=== PATIENT | female | born 1960 | race African-American/Black ===

== ENCOUNTER 2016-08-02 19:37 | Inpatient (IN) | payer OTHER ==
[~2016-08-02] VITALS: Ht 165.1 cm; Wt 103.0 kg
[~2016-08-02 19:37] MED LIST: IBUPROFEN600 MG ORAL; NKM; NORCO 5-325 TA1 EACH ORAL
[2016-08-02 19:50] VITALS: BP 129/94
[2016-08-02] MEDS ORDERED: DuoNeb 0.5-3(2.5)mg/3ml neb HHN ONE ×2 (20:15→21:45)
[2016-08-02 20:40] LABS: BASOPHILS % (AUTO) 0.8 % (0.0-2.0); LYMPHOCYTES % (AUTO) 24.7 % (20.0-45.0); MEAN CORPUSCULAR HEMOGLOBIN 27.3 PG (27.0-31.0); MEAN CORPUSCULAR HGB CONC 31.8 G/DL (32.0-36.0); MEAN CORPUSCULAR VOLUME 86 FL (80-99); MEAN PLATELET VOLUME 7.3 FL (6.5-10.1); MONOCYTES % (AUTO) 4.6 % (1.0-10.0); NEUTROPHILS % (AUTO) 68.8 % (45.0-75.0); PLATELET COUNT 254 K/UL (150-450); RED CELL DISTRIBUTION WIDTH 13.1 % (11.6-14.8); WHITE BLOOD COUNT 4.9 K/UL (4.8-10.8)
[2016-08-02 21:05] LABS: TROPONIN I < 0.30 ng/mL (<=0.30)
[2016-08-02 21:09] LABS: ALANINE AMINOTRANSFERASE 18 U/L (3-33); ALBUMIN/GLOBULIN RATIO 1.4 (1.0-2.7); ANION GAP 16 (5-15); ASPARTATE AMINO TRANSFERASE 18 U/L (5-40); CALCIUM 9.9 mg/dL (8.6-10.2); CARBON DIOXIDE 26 mEQ/L (20-30); CHLORIDE 101 mEQ/L (98-107); CREATININE 0.7 mg/dL (0.5-0.9); GLOMERULAR FILTRATION RATE > 60 mL/min (>60); HEMOLYSIS 7; SODIUM 143 mEQ/L (135-145); TOTAL PROTEIN 6.4 g/dL (6.6-8.7)
[2016-08-02] MEDS ORDERED: Norco 5mg/325mg tab ORAL ONE (21:15)
[2016-08-02 21:19] LABS: CKMB < 1.5 ng/mL (< 3.8)
[2016-08-02] MEDS ORDERED: Solu-MEDROL 125mg Inj IVP SCH (22:00)
[2016-08-02 22:38] VITALS: BP 103/53
[2016-08-02] MEDS ORDERED: CYCLOBENZAPRINE10 MG ORAL (23:26)
--- NOTE | 2016-08-02 23:59 | Emergency Room Report ---
History of Present Illness General Chief Complaint: Chest Pain Source: Patient Present Illness [facility] The patient's 55-year-old female presented after increased chest pain. Patient gradual onset of symptoms. Patient reported having increased sharp chest pain associated with some coughing. Patient gradual worsening of difficulty breathing. She denies any leg pain or swelling. Patient had no known prior cardiac history.The patient had a nonproductive cough. Patient had subjective fever. She reported having sharp pain which was worse with coughing. Allergies: Coded Allergies: PENICILLIN (Verified Allergy, Unknown, 06/11/15) Patient History Past Medical History: see triage record Now: No Reviewed Nursing Documentation: PMH: Agreed, PSxH: Agreed Nursing Documentation-PMH Past Medical History: No History, Except For Review of Systems All Other Systems: negative except mentioned in HPI Physical Exam Vital Signs Date Time Temp Pulse Resp B/P Pulse Ox O2 Delivery O2 Flow Rate FiO2 08/02/16 19:41 98.2 103 16 129/94 100 Room Air 08/02/16 20:20 21 08/02/16 21:56 2.0 Sp02 EP Interpretation: reviewed, normal General Appearance: normal inspection, alert, GCS 15, mild distress Head: atraumatic ENT: normal ENT inspection, hearing grossly normal, normal voice Neck: normal inspection, full range of motion, supple, no bony tend Respiratory: normal inspection, no retraction, decreased breath sounds, wheezing Cardiovascular #1: regular rate, rhythm, no edema Gastrointestinal: normal inspection, normal bowel sounds, non tender, soft, no guarding, no hernia Genitourinary: no CVA tenderness Musculoskeletal: normal inspection, back normal, normal range of motion Neurologic: normal inspection, alert, oriented x3, responsive, optometrist president/practice owner III-XII nml as tested, speech normal Psychiatric: normal inspection, judgement/insight normal, mood/affect normal Skin: normal inspection, normal color, no rash Medical Decision Making Diagnostic Impression: Primary Impression: Chest pain Additional Impressions: Asthmatic bronchitis Hypoxia ER Course Patient presented for shortness of breath.Differential included but was not limited to anemia, pneumonia, pneumothorax, myocardial infarction, pericardial effusion, congestive heart failure, acidosis. Because of complexity of patient' s case laboratory testing and imaging studies were ordered. Chest x-ray one view interpreted by me showed normal cardiac size without evident infiltrate there were degenerative spinal changes noted. Patient was given breathing treatments. She was given Solu-Medrol IV. Dr. Ho was contacted for Dr. Fregoso for inpatient management. Labs Test 08/02/16 20:21 White Blood Count 4.9 K/UL (4.8-10.8) Red Blood Count 4.70 M/UL (4.20-5.40) Hemoglobin 12.8 G/DL (12.0-16.0) Hematocrit 40.3 % (37.0-47.0) Mean Corpuscular Volume 86 FL (80-99) Mean Corpuscular Hemoglobin 27.3 PG (27.0-31.0) Mean Corpuscular Hemoglobin Concent 31.8 G/DL (32.0-36.0) Red Cell Distribution Width 13.1 % (11.6-14.8) Platelet Count 254 K/UL (150-450) Mean Platelet Volume 7.3 FL (6.5-10.1) Neutrophils (%) (Auto) 68.8 % (45.0-75.0) Lymphocytes (%) (Auto) 24.7 % (20.0-45.0) Monocytes (%) (Auto) 4.6 % (1.0-10.0) Eosinophils (%) (Auto) 1.0 % (0.0-3.0) Basophils (%) (Auto) 0.8 % (0.0-2.0) Sodium Level 143 mEQ/L (135-145) Potassium Level 4.0 mEQ/L (3.4-4.9) Chloride Level 101 mEQ/L (98-107) Carbon Dioxide Level 26 mEQ/L (20-30) Anion Gap 16 (5-15) Blood Urea Nitrogen 14 mg/dL (7-23) Creatinine 0.7 mg/dL (0.5-0.9) Estimat Glomerular Filtration Rate > 60 mL/min (>60) Glucose Level 156 mg/dL (74-106) Calcium Level 9.9 mg/dL (8.6-10.2) Total Bilirubin 0.3 mg/dL (0.0-1.2) Aspartate Amino Transf (AST/SGOT) 18 U/L (5-40) Alanine Aminotransferase (ALT/SGPT) 18 U/L (3-33) Alkaline Phosphatase 77 U/L (35-104) Total Creatine Kinase 70 U/L (26-140) Creatine Kinase MB < 1.5 ng/mL (< 3.8) Creatine Kinase MB Relative Index Troponin I < 0.30 ng/mL (<=0.30) Pro-B-Type Natriuretic Peptide 18 pg/mL (0-125) Total Protein 6.4 g/dL (6.6-8.7) Albumin 3.8 g/dL (3.5-5.2) Globulin 2.6 g/dL Albumin/Globulin Ratio 1.4 (1.0-2.7) EKG Diagnostic Results Rate: normal Rhythm: NSR ST Segments: no acute changes Chest X-Ray Diagnostic Results EP Interpretation: Yes Findings: no consolidation, no effusion, no pneumothorax, no acute cardiopulmonary disease Number of Views: 1 Last Vital Signs Date Time Temp Pulse Resp B/P Pulse Ox O2 Delivery O2 Flow Rate FiO2 08/02/16 23:27 98.2 105 40 103/53 97 Nasal Cannula 2.0 28 Status: unchanged Disposition: ADMITTED INPATIENT Condition: Serious Referrals: [facility],REFERRING (PCP) Dalton Lafleur Aug 02, 2016 23:59
[2016-08-03] MEDS ORDERED: DIAZEPAM10 MG PO (00:05)
[2016-08-03] MEDS ORDERED: TIZANIDINE HCL4 MG PO (00:05)
[2016-08-03] MEDS ORDERED: HYDROCODON-ACE1 EA13 PO (00:05)
[2016-08-03 00:19] VITALS: BP 152/89
[2016-08-03] MEDS ORDERED: Hydromorphone 0.5mg/0.5ml inj IVP PRN (01:00)
[2016-08-03] MEDS: HYDROmorphone 1mg/ml Carpuject IVP PRN ×3 (01:07→20:33)
[2016-08-03 03:04] LABS: MEAN CORPUSCULAR HEMOGLOBIN 27.4 PG (27.0-31.0); MEAN CORPUSCULAR HGB CONC 31.9 G/DL (32.0-36.0); MEAN CORPUSCULAR VOLUME 86 FL (80-99); MEAN PLATELET VOLUME 7.5 FL (6.5-10.1); PLATELET COUNT 244 K/UL (150-450); RED BLOOD COUNT 4.77 M/UL (4.20-5.40); RED CELL DISTRIBUTION WIDTH 13.2 % (11.6-14.8); WHITE BLOOD COUNT 7.7 K/UL (4.8-10.8)
[2016-08-03 03:18] LABS: ANION GAP 19 (5-15); CALCIUM 9.6 mg/dL (8.6-10.2); CARBON DIOXIDE 22 mEQ/L (20-30); CHLORIDE 100 mEQ/L (98-107); CREATININE 0.7 mg/dL (0.5-0.9); GLOMERULAR FILTRATION RATE > 60 mL/min (>60); HEMOLYSIS 2; POTASSIUM 4.4 mEQ/L (3.4-4.9); SODIUM 141 mEQ/L (135-145)
[2016-08-03 03:20] LABS: TROPONIN I < 0.30 ng/mL (<=0.30)
[2016-08-03 04:05] VITALS: BP 129/66
[2016-08-03] MEDS: DuoNeb 0.5-3(2.5)mg/3ml neb HHN PRN (06:15)
[2016-08-03 08:21] VITALS: BP 129/65
[2016-08-03] MEDS: PredniSONE 20mg tab ORAL SCH (08:23)
[2016-08-03 09:10] LABS: TROPONIN I < 0.30 ng/mL (<=0.30)
--- NOTE | 2016-08-03 10:05 | History and Physical ---
History of Present Illness General Date patient seen: Aug 03, 2016 Time patient seen: 10:05 Reason for Hospitalization: Chest Pain Present Illness HPI 55y/o female with pmh of tobacco abuse who presents with chest pain. Pt c/o sharp pleuritic substernal and R sided chest pain since yesterday. Also w/ SOB. She has been having a cough productive of some yellow sputum and subjective fevers for the past few days. Allergies: Coded Allergies: PENICILLIN (Verified Allergy, Unknown, 06/11/15) Medication History Scheduled Cyclobenzaprine Hcl* (Flexeril*), 10 MG ORAL THREE TIMES A DAY, (Reported) Diazepam* (Diazepam*), 10 MG PO BEDTIME, (Reported) Tizanidine Hcl* (Zanaflex*), 4 MG PO Q8HR, (Reported) Scheduled PRN Hydrocodone Bit/Acetaminophen 10-325* (Hydrocodon-Acetaminophn 10-325*), 1 TAB PO Q6HR PRN for For Pain, (Reported) Ibuprofen* (Motrin*), 600 MG ORAL Q6H PRN for For Pain Discontinued Medications Hydrocodone Bit/Acetaminophen 5-325* ([place] 5-325*), 1 TAB ORAL Q6H PRN for For Pain Discontinued Reason: Therapy completed Patient History History Provided By: Patient, Medical Record Healthcare decision maker pt alert and oriented Resuscitation status Full Code Advanced Directive on File Past Medical/Surgical History Past Medical/Surgical History: (1) Tobacco abuse Family History Family History: Patient reports no known family medical history. Social History Social History: (1) Tobacco abuse Review of Systems ROS Narrative CONSTITUTIONAL: No weight loss, fever, chills, weakness or fatigue. HEENT: Eyes: No visual loss, blurred vision, double vision or yellow sclerae. Ears, Nose, Throat: No hearing loss, sneezing, congestion, runny nose or sore throat. SKIN: No rash or itching. CARDIOVASCULAR: +chest pain, chest pressure or chest discomfort. No palpitations or edema. RESPIRATORY: +shortness of breath, cough or sputum. GASTROINTESTINAL: No anorexia, nausea, vomiting or diarrhea. No abdominal pain or blood. NEUROLOGICAL: No headache, dizziness, syncope, paralysis, ataxia, numbness or tingling in the extremities. No change in bowel or bladder control. MUSCULOSKELETAL: No muscle, back pain, joint pain or stiffness. HEMATOLOGIC: No anemia, bleeding or bruising. LYMPHATICS: No enlarged nodes. No history of splenectomy. PSYCHIATRIC: No history of depression or anxiety. ENDOCRINOLOGIC: No reports of sweating, cold or heat intolerance. No polyuria or polydipsia. ALLERGIES: No history of asthma, hives, eczema or rhinitis. Physical Exam Physical Exam Narrative General: alert, cooperative, no distress, appears stated age Head: normocephalic, without obvious abnormality, atraumatic Eyes: conjunctivae/corneas clear. PERRL, EOM's intact Throat: lips, mucosa, and tongue normal. MMM Neck: supple, symmetrical, trachea midline, and no JVD Lungs: +wheezing b/l Heart: regular rate and rhythm, S1, S2 normal, no murmur, click, rub or gallop +reproducible pain Abdomen: soft, non-tender, non-distended, bowel sounds normal; no masses or organomegaly Extremities: extremities normal, atraumatic, no cyanosis or edema Pulses: 2+ and symmetric Skin: skin color, texture, turgor normal; no rashes or lesions Neurologic: grossly normal, no focal deficits Last 24 Hour Vital Signs Date Time Temp Pulse Resp B/P Pulse Ox O2 Delivery O2 Flow Rate FiO2 08/03/16 08:21 98.2 109 20 129/65 93 Nasal Cannula 2.0 08/03/16 08:00 107 08/03/16 06:18 97 Nasal Cannula 2.0 08/03/16 06:18 Nasal Cannula 2.0 08/03/16 06:17 106 20 Nasal Cannula 2.0 08/03/16 06:10 106 20 100 Nasal Cannula 2.0 08/03/16 06:05 104 20 97 Nasal Cannula 2.0 28 08/03/16 06:05 28 08/03/16 04:05 98.8 88 18 129/66 96 Nasal Cannula 2.0 08/03/16 04:00 104 08/03/16 00:19 98.1 99 19 152/89 97 Room Air 08/02/16 23:27 98.2 105 40 103/53 97 Nasal Cannula 2.0 08/02/16 22:38 98.2 105 40 103/53 97 Nasal Cannula 2.0 08/02/16 22:29 98.2 08/02/16 21:56 94 20 97 Nasal Cannula 2.0 08/02/16 21:44 21 08/02/16 21:43 92 22 93 Room Air 21 08/02/16 20:36 96 25 Room Air 21 08/02/16 20:32 92 20 98 Room Air 21 08/02/16 20:20 21 08/02/16 20:20 96 25 96 Room Air 21 08/02/16 19:50 98.2 84 16 129/94 100 Room Air 08/02/16 19:50 103 16 Room Air 08/02/16 19:41 98.2 103 16 129/94 100 Room Air Intake and Output 08/02/16 08/03/16 19:00 07:00 # Voids 2 Laboratory Tests Test 08/02/16 20:21 08/03/16 02:30 08/03/16 08:20 White Blood Count 4.9 K/UL (4.8-10.8) 7.7 K/UL (4.8-10.8) # Red Blood Count 4.70 M/UL (4.20-5.40) 4.77 M/UL (4.20-5.40) Hemoglobin 12.8 G/DL (12.0-16.0) 13.1 G/DL (12.0-16.0) Hematocrit 40.3 % (37.0-47.0) 41.0 % (37.0-47.0) Mean Corpuscular Volume 86 FL (80-99) 86 FL (80-99) Mean Corpuscular Hemoglobin 27.3 PG (27.0-31.0) 27.4 PG (27.0-31.0) Mean Corpuscular Hemoglobin Concent 31.8 G/DL (32.0-36.0) L 31.9 G/DL (32.0-36.0) L Red Cell Distribution Width 13.1 % (11.6-14.8) 13.2 % (11.6-14.8) Platelet Count 254 K/UL (150-450) 244 K/UL (150-450) Mean Platelet Volume 7.3 FL (6.5-10.1) 7.5 FL (6.5-10.1) Neutrophils (%) (Auto) 68.8 % (45.0-75.0) % (45.0-75.0) Lymphocytes (%) (Auto) 24.7 % (20.0-45.0) % (20.0-45.0) Monocytes (%) (Auto) 4.6 % (1.0-10.0) % (1.0-10.0) Eosinophils (%) (Auto) 1.0 % (0.0-3.0) % (0.0-3.0) Basophils (%) (Auto) 0.8 % (0.0-2.0) % (0.0-2.0) Sodium Level 143 mEQ/L (135-145) 141 mEQ/L (135-145) Potassium Level 4.0 mEQ/L (3.4-4.9) 4.4 mEQ/L (3.4-4.9) Chloride Level 101 mEQ/L (98-107) 100 mEQ/L (98-107) Carbon Dioxide Level 26 mEQ/L (20-30) 22 mEQ/L (20-30) Anion Gap 16 (5-15) H 19 (5-15) H Blood Urea Nitrogen 14 mg/dL (7-23) 13 mg/dL (7-23) Creatinine 0.7 mg/dL (0.5-0.9) 0.7 mg/dL (0.5-0.9) Estimat Glomerular Filtration Rate > 60 mL/min (>60) > 60 mL/min (>60) Glucose Level 156 mg/dL (74-106) H 246 mg/dL (74-106) H Calcium Level 9.9 mg/dL (8.6-10.2) 9.6 mg/dL (8.6-10.2) Total Bilirubin 0.3 mg/dL (0.0-1.2) Aspartate Amino Transf (AST/SGOT) 18 U/L (5-40) Alanine Aminotransferase (ALT/SGPT) 18 U/L (3-33) Alkaline Phosphatase 77 U/L (35-104) Total Creatine Kinase 70 U/L (26-140) Creatine Kinase MB < 1.5 ng/mL (< 3.8) Creatine Kinase MB Relative Index Troponin I < 0.30 ng/mL (<=0.30) < 0.30 ng/mL (<=0.30) < 0.30 ng/mL (<=0.30) Pro-B-Type Natriuretic Peptide 18 pg/mL (0-125) Total Protein 6.4 g/dL (6.6-8.7) L Albumin 3.8 g/dL (3.5-5.2) Globulin 2.6 g/dL Albumin/Globulin Ratio 1.4 (1.0-2.7) Height (Feet): 5 Height (Inches): 5.00 Weight (Pounds): 227 Medications Current Medications Medications (Trade) Dose Ordered Sig/Balwinder Route PRN Reason Start Time Stop Time Status Last Admin Dose Admin Albuterol/ Ipratropium (DuoNeb 0.5-3(2.5)mg/3ml) 3 ml Q4H PRN HHN Shortness of Breath 08/03/16 01:00 08/08/16 00:59 08/03/16 06:15 Hydromorphone HCl (Dilaudid) 0.5 mg Q4H PRN IVP Pain Scale (3-5) 08/03/16 01:00 08/10/16 00:59 Hydromorphone HCl (Dilaudid) 1 mg Q4H PRN IVP Severe Pain (Pain Scale 7-10) 08/03/16 01:00 08/10/16 00:59 08/03/16 01:07 Prednisone (predniSONE) 60 mg DAILY ORAL 08/03/16 09:00 09/02/16 08:59 08/03/16 08:23 Assessment/Plan Problem List: (1) Asthmatic bronchitis ICD Codes: J45.909 - Unspecified asthma, uncomplicated SNOMED: 760066231 (2) Pleuritic chest pain ICD Codes: R07.81 - Pleurodynia SNOMED: 1435941 (3) Tobacco abuse ICD Codes: Z72.0 - Tobacco use SNOMED: 00888951, 582518820 Status: stable Assessment/Plan Possible asthma vs COPD exacerbation 2/2 bronchitis Admit to inpt Pulmonology consulted Cont steroids Cont duonebs ATC and PRN Start Azithro 500mg qd x 5d Check LE duplex Check TTE Check influenza A/B Guaifenesin PRN Billing Representative on smoking cessation SCD, HSQ FULL CODE Priscilla Duncan M.D. Aug 03, 2016 10:05
--- NOTE | 2016-08-03 10:38 | Diagnostic Imaging Report ---
Indication: SOB Technique: One view of the chest Comparison: 06/11/2015 Findings: The heart is mildly enlarged. Lungs and pleural spaces are clear. No significant change Impression: No acute process Mild cardiomegaly This agrees with the preliminary interpretation provided by the emergency room physician
[2016-08-03] MEDS: Azithromycin 250mg tab ORAL SCH (11:15)
[2016-08-03 11:50] VITALS: BP 117/59
[2016-08-03] MEDS ORDERED: guaiFENesin 100mg/5ml Liq ud ORAL PRN (12:45)
--- NOTE | 2016-08-03 13:15 | Consultation ---
History of Present Illness General Date patient seen: Aug 03, 2016 Chief Complaint: Chest Pain Referring physician: Dr. Wells Present Illness HPI 55-year-old female with hx of smoking presented to [facility] with CC of chest pain, sharp, mostly right sided and pleuritic. She had a nonproductive cough and some subjective fever. Her CXR was negative. She just recovered from a cold that she got before Thanks giving. Allergies: Coded Allergies: PENICILLIN (Verified Allergy, Unknown, 06/11/15) Medication History Scheduled Cyclobenzaprine Hcl* (Flexeril*), 10 MG ORAL THREE TIMES A DAY, (Reported) Diazepam* (Diazepam*), 10 MG PO BEDTIME, (Reported) Tizanidine Hcl* (Zanaflex*), 4 MG PO Q8HR, (Reported) Scheduled PRN Hydrocodone Bit/Acetaminophen 10-325* (Hydrocodon-Acetaminophn 10-325*), 1 TAB PO Q6HR PRN for For Pain, (Reported) Ibuprofen* (Motrin*), 600 MG ORAL Q6H PRN for For Pain Discontinued Medications Hydrocodone Bit/Acetaminophen 5-325* ([place] 5-325*), 1 TAB ORAL Q6H PRN for For Pain Discontinued Reason: Therapy completed Patient History Healthcare decision maker pt alert and oriented Resuscitation status Full Code Advanced Directive on File Past Medical/Surgical History Past Medical/Surgical History: (1) Osteoarthritis Review of Systems All Other Systems: negative except mentioned in HPI Physical Exam Lines, tubes and drains: peripheral, trach HEENT: normocephalic Neck: non-tender Respiratory/Chest: chest wall non-tender, lungs clear Last 24 Hour Vital Signs Date Time Temp Pulse Resp B/P Pulse Ox O2 Delivery O2 Flow Rate FiO2 08/03/16 11:50 97.3 103 20 117/59 95 Nasal Cannula 08/03/16 08:21 98.2 109 20 129/65 93 Nasal Cannula 2.0 08/03/16 08:00 107 08/03/16 06:18 97 Nasal Cannula 2.0 28 08/03/16 06:18 Nasal Cannula 2.0 28 08/03/16 06:17 106 20 Nasal Cannula 2.0 28 08/03/16 06:10 106 20 100 Nasal Cannula 2.0 28 08/03/16 06:05 104 20 97 Nasal Cannula 2.0 28 08/03/16 06:05 28 08/03/16 04:05 98.8 88 18 129/66 96 Nasal Cannula 2.0 08/03/16 04:00 104 08/03/16 00:19 98.1 99 19 152/89 97 Room Air 08/02/16 23:27 98.2 105 40 103/53 97 Nasal Cannula 2.0 28 08/02/16 22:38 98.2 105 40 103/53 97 Nasal Cannula 2.0 28 08/02/16 22:29 98.2 08/02/16 21:56 94 20 97 Nasal Cannula 2.0 28 08/02/16 21:44 21 08/02/16 21:43 92 22 93 Room Air 21 08/02/16 20:36 96 25 Room Air 21 08/02/16 20:32 92 20 98 Room Air 21 08/02/16 20:20 21 08/02/16 20:20 96 25 96 Room Air 21 08/02/16 19:50 98.2 84 16 129/94 100 Room Air 08/02/16 19:50 103 16 Room Air 08/02/16 19:41 98.2 103 16 129/94 100 Room Air Intake and Output 08/02/16 08/03/16 19:00 07:00 # Voids 2 Laboratory Tests Test 08/02/16 20:21 08/03/16 02:30 08/03/16 08:20 White Blood Count 4.9 K/UL (4.8-10.8) 7.7 K/UL (4.8-10.8) # Red Blood Count 4.70 M/UL (4.20-5.40) 4.77 M/UL (4.20-5.40) Hemoglobin 12.8 G/DL (12.0-16.0) 13.1 G/DL (12.0-16.0) Hematocrit 40.3 % (37.0-47.0) 41.0 % (37.0-47.0) Mean Corpuscular Volume 86 FL (80-99) 86 FL (80-99) Mean Corpuscular Hemoglobin 27.3 PG (27.0-31.0) 27.4 PG (27.0-31.0) Mean Corpuscular Hemoglobin Concent 31.8 G/DL (32.0-36.0) L 31.9 G/DL (32.0-36.0) L Red Cell Distribution Width 13.1 % (11.6-14.8) 13.2 % (11.6-14.8) Platelet Count 254 K/UL (150-450) 244 K/UL (150-450) Mean Platelet Volume 7.3 FL (6.5-10.1) 7.5 FL (6.5-10.1) Neutrophils (%) (Auto) 68.8 % (45.0-75.0) % (45.0-75.0) Lymphocytes (%) (Auto) 24.7 % (20.0-45.0) % (20.0-45.0) Monocytes (%) (Auto) 4.6 % (1.0-10.0) % (1.0-10.0) Eosinophils (%) (Auto) 1.0 % (0.0-3.0) % (0.0-3.0) Basophils (%) (Auto) 0.8 % (0.0-2.0) % (0.0-2.0) Sodium Level 143 mEQ/L (135-145) 141 mEQ/L (135-145) Potassium Level 4.0 mEQ/L (3.4-4.9) 4.4 mEQ/L (3.4-4.9) Chloride Level 101 mEQ/L (98-107) 100 mEQ/L (98-107) Carbon Dioxide Level 26 mEQ/L (20-30) 22 mEQ/L (20-30) Anion Gap 16 (5-15) H 19 (5-15) H Blood Urea Nitrogen 14 mg/dL (7-23) 13 mg/dL (7-23) Creatinine 0.7 mg/dL (0.5-0.9) 0.7 mg/dL (0.5-0.9) Estimat Glomerular Filtration Rate > 60 mL/min (>60) > 60 mL/min (>60) Glucose Level 156 mg/dL (74-106) H 246 mg/dL (74-106) H Calcium Level 9.9 mg/dL (8.6-10.2) 9.6 mg/dL (8.6-10.2) Total Bilirubin 0.3 mg/dL (0.0-1.2) Aspartate Amino Transf (AST/SGOT) 18 U/L (5-40) Alanine Aminotransferase (ALT/SGPT) 18 U/L (3-33) Alkaline Phosphatase 77 U/L (35-104) Total Creatine Kinase 70 U/L (26-140) Creatine Kinase MB < 1.5 ng/mL (< 3.8) Creatine Kinase MB Relative Index Troponin I < 0.30 ng/mL (<=0.30) < 0.30 ng/mL (<=0.30) < 0.30 ng/mL (<=0.30) Pro-B-Type Natriuretic Peptide 18 pg/mL (0-125) Total Protein 6.4 g/dL (6.6-8.7) L Albumin 3.8 g/dL (3.5-5.2) Globulin 2.6 g/dL Albumin/Globulin Ratio 1.4 (1.0-2.7) Height (Feet): 5 Height (Inches): 5.00 Weight (Pounds): 227 Medications Current Medications Medications (Trade) Dose Ordered Sig/Balwinder Route PRN Reason Start Time Stop Time Status Last Admin Dose Admin Albuterol/ Ipratropium (DuoNeb 0.5-3(2.5)mg/3ml) 3 ml Q4H PRN HHN Shortness of Breath 08/03/16 01:00 08/08/16 00:59 08/03/16 06:15 Albuterol/ Ipratropium (DuoNeb 0.5-3(2.5)mg/3ml) 3 ml Q4HRT HHN 08/03/16 15:00 08/08/16 14:59 Aspirin (ASA) 81 mg DAILY ORAL 08/04/16 09:00 09/03/16 08:59 Atorvastatin Calcium (Lipitor) 80 mg BEDTIME ORAL 08/03/16 21:00 09/02/16 20:59 Azithromycin (Zithromax) 500 mg DAILY@1200 ORAL 08/03/16 12:00 08/10/16 11:59 08/03/16 11:15 Guaifenesin (Robitussin) 100 mg Q4H PRN ORAL For Cough 08/03/16 12:45 09/02/16 12:44 Hydromorphone HCl (Dilaudid) 0.5 mg Q4H PRN IVP Pain Scale (3-5) 08/03/16 01:00 08/10/16 00:59 Hydromorphone HCl (Dilaudid) 1 mg Q4H PRN IVP Severe Pain (Pain Scale 7-10) 08/03/16 01:00 08/10/16 00:59 08/03/16 12:56 Prednisone (predniSONE) 60 mg DAILY ORAL 08/03/16 09:00 09/02/16 08:59 08/03/16 08:23 Assessment/Plan Problem List: (1) Pleuritic chest pain ICD Codes: R07.81 - Pleurodynia SNOMED: 1629778 (2) Costochondritis, acute ICD Codes: M94.0 - Chondrocostal junction syndrome [Tietze] SNOMED: 70831800 (3) Asthmatic bronchitis ICD Codes: J45.909 - Unspecified asthma, uncomplicated SNOMED: 465760103 Assessment/Plan CTA to rule out PE. Respiratory treatment antitussive check sputum short term antibiotics JOSE CRUZ Aug 03, 2016 13:15
--- NOTE | 2016-08-03 14:19 | Diagnostic Imaging Report ---
ndication: DYSPNEA Technique: IV administration nonionic contrast. Spiral acquisitions obtained from the lung bases to the lung apices. Multiplanar and 3-D reconstructions were generated. Total dose length product 895 mGycm. CTDIvol(s) 12, 25, 30 mGy Comparison: None Findings: There is image degradation due to respiratory motion and cardiac pulsation artifact. There is adequate pulmonary arterial opacification. No definite intraluminal filling defects or other findings to suggest acute pulmonary embolus demonstrated. Normal caliber thoracic aorta. Normal caliber pulmonary arteries. No evidence of right ventricular dilatation. The heart size is upper limits of normal. There is considerable volume loss of the medial lower lobes bilaterally. This is indeterminate as regards acuity, although some bronchiectasis within it bilaterally may indicate that this is due to chronic fibrotic change. No definite acute infiltrates. There is some scarring or atelectasis at the right lung apex. There is scarring or atelectasis involving the left perihilar upper lobe. No definite acute infiltrates. No definite masses, although a mass lesion could be obscured by the atelectatic lung. No effusions. No pericardial effusion. No mediastinal or hilar mass or adenopathy. No axillary or chest wall mass or adenopathy. The included upper abdominal anatomy demonstrates a 17 mm focus of arterial enhancement in segment 7 of the liver near the dome. The stomach is distended with fluid. The liver may be enlarged. Impression: No definite evidence of pulmonary embolus. Note, however, evaluation, particular the lower lobes, is limited due to motion artifact Bilateral medial lower lobe volume loss. Uncertain as to whether this is due to atelectasis versus scarring there 17 mm focus of arterial enhancement in segment 7 of the liver noted. This may represent a transient hepatic attenuation difference or atypical hemangioma, but other etiologies cannot be excluded. Consider further evaluation with dedicated hepatic CT. Mild cardiomegaly Possible hepatomegaly, liver incompletely visualized The CT scanner at [facility] is accredited by the [employer] and the scans are performed using protocols designed to limit radiation exposure to as low as reasonably achievable to attain images of sufficient resolution adequate for diagnostic evaluation.
[2016-08-03] MEDS: DuoNeb 0.5-3(2.5)mg/3ml neb HHN SCH ×3 (15:45→22:39)
[2016-08-03 16:00] VITALS: BP 113/55
[2016-08-03 20:00] VITALS: BP 131/57
[2016-08-03] MEDS: Atorvastatin 80mg tab ORAL SCH (20:31)
[2016-08-04] VITALS: BP 102/67
[2016-08-04] MEDS ORDERED: TraZODone 50mg tab ORAL PRN (01:15)
[2016-08-04] MEDS: DuoNeb 0.5-3(2.5)mg/3ml neb HHN SCH ×6 (03:55→23:30)
[2016-08-04 04:00] VITALS: BP 116/64
[2016-08-04 08:02] VITALS: BP 119/68
[2016-08-04] MEDS: Aspirin Baby 81mg ORAL SCH (08:34)
[2016-08-04] MEDS: PredniSONE 20mg tab ORAL SCH (08:34)
[2016-08-04] MEDS: Heparin 5000 units/ml inj SUBQ SCH ×2 (08:35→20:52)
--- NOTE | 2016-08-04 09:03 | General Progress Note ---
Assessment/Plan Problem List: (1) Asthmatic bronchitis ICD Codes: J45.909 - Unspecified asthma, uncomplicated SNOMED: 932357798 (2) Pleuritic chest pain ICD Codes: R07.81 - Pleurodynia SNOMED: 0607201 (3) Tobacco abuse ICD Codes: Z72.0 - Tobacco use SNOMED: 03703579, [id number] Status: stable Assessment/Plan Possible asthma vs COPD exacerbation 2/2 bronchitis. Influenza neg Pulmonology consulted,, appreciate rec's CTA neg for pE Cont steroids Cont duonebs ATC and PRN Cont Azithro 500mg qd x 5d Guaifenesin PRN [place] Pen Cartridge Tester on smoking cessation SCD, HSQ FULL CODE Subjective Date patient seen: Aug 04, 2016 Time patient seen: 09:03 ROS Limited/Unobtainable: No Constitutional: Reports: no symptoms HEENT: Reports: no symptoms Cardiovascular: Reports: no symptoms Respiratory: Reports: cough, shortness of breath Gastrointestinal/Abdominal: Reports: no symptoms Genitourinary: Reports: no symptoms Neurologic/Psychiatric: Reports: no symptoms Endocrine: Reports: no symptoms Hematologic/Lymphatic: Reports: no symptoms Allergies: Coded Allergies: PENICILLIN (Verified Allergy, Unknown, 06/11/15) All Systems: reviewed and negative except above Subjective No acute o/n events CTA neg for PE Pt feels better Still w/ cough, SOB, some wheezing Objective Last 24 Hour Vital Signs Date Time Temp Pulse Resp B/P Pulse Ox O2 Delivery O2 Flow Rate FiO2 08/04/16 08:02 97.3 86 18 119/68 96 Nasal Cannula 2.0 08/04/16 07:09 94 16 98 Nasal Cannula 2.0 28 08/04/16 07:06 28 08/04/16 07:04 92 18 Nasal Cannula 2.0 28 08/04/16 07:04 92 18 95 Nasal Cannula 2.0 28 08/04/16 07:04 92 Nasal Cannula 2.0 28 08/04/16 07:04 Nasal Cannula 2.0 28 08/04/16 04:00 96.4 89 20 116/64 98 Nasal Cannula 2.0 08/04/16 04:00 77 08/04/16 03:58 Nasal Cannula 08/04/16 03:56 Nasal Cannula 08/04/16 00:00 96 08/04/16 00:00 96.8 96 20 102/67 96 08/03/16 22:54 94 14 99 Nasal Cannula 2.0 28 08/03/16 22:40 28 08/03/16 22:39 94 16 97 Nasal Cannula 2.0 28 08/03/16 20:00 97.6 108 21 131/57 92 Nasal Cannula 2.0 08/03/16 20:00 108 08/03/16 19:21 93 18 99 Nasal Cannula 2.0 28 08/03/16 19:10 28 08/03/16 19:09 93 18 96 Nasal Cannula 2.0 28 08/03/16 19:09 99 Nasal Cannula 2.0 28 08/03/16 19:09 Nasal Cannula 2.0 28 08/03/16 19:08 103 16 Nasal Cannula 2.0 28 08/03/16 16:00 97.8 105 21 113/55 92 Nasal Cannula 2.0 08/03/16 16:00 106 08/03/16 15:49 99 20 99 Nasal Cannula 2.0 28 08/03/16 15:46 99 20 96 Nasal Cannula 2.0 28 08/03/16 15:46 28 08/03/16 12:00 100 08/03/16 11:50 97.3 103 20 117/59 95 Nasal Cannula Intake and Output 08/03/16 08/04/16 19:00 07:00 Intake Total 240 ml 300 ml Balance 240 ml 300 ml Intake Oral 240 ml 300 ml # Voids 2 4 Height (Feet): 5 Height (Inches): 5.00 Weight (Pounds): 227 Objective General: alert, cooperative, no distress, appears stated age Head: normocephalic, without obvious abnormality, atraumatic Eyes: conjunctivae/corneas clear. PERRL, EOM's intact Throat: lips, mucosa, and tongue normal. MMM Neck: supple, symmetrical, trachea midline, and no JVD Lungs: +wheezing b/l (improved) Heart: regular rate and rhythm, S1, S2 normal, no murmur, click, rub or gallop +reproducible pain Abdomen: soft, non-tender, non-distended, bowel sounds normal; no masses or organomegaly Extremities: extremities normal, atraumatic, no cyanosis or edema Pulses: 2+ and symmetric Skin: skin color, texture, turgor normal; no rashes or lesions Neurologic: grossly normal, no focal deficits Wijegunaratne,Kanishka M.D. Aug 04, 2016 09:03
[2016-08-04 10:04] LABS: BASOPHILS % (AUTO) 1.4 % (0.0-2.0); EOSINOPHILS % (AUTO) 0.1 % (0.0-3.0); LYMPHOCYTES % (AUTO) 29.8 % (20.0-45.0); MEAN CORPUSCULAR HEMOGLOBIN 27.2 PG (27.0-31.0); MEAN CORPUSCULAR HGB CONC 31.7 G/DL (32.0-36.0); MEAN CORPUSCULAR VOLUME 86 FL (80-99); MEAN PLATELET VOLUME 7.3 FL (6.5-10.1); MONOCYTES % (AUTO) 8.2 % (1.0-10.0); NEUTROPHILS % (AUTO) 60.6 % (45.0-75.0); PLATELET COUNT 252 K/UL (150-450); RED BLOOD COUNT 4.46 M/UL (4.20-5.40); RED CELL DISTRIBUTION WIDTH 13.5 % (11.6-14.8); WHITE BLOOD COUNT 5.1 K/UL (4.8-10.8)
[2016-08-04 10:19] LABS: ANION GAP 17 (5-15); CALCIUM 8.9 mg/dL (8.6-10.2); CARBON DIOXIDE 23 mEQ/L (20-30); CHLORIDE 102 mEQ/L (98-107); CREATININE 0.6 mg/dL (0.5-0.9); GLOMERULAR FILTRATION RATE > 60 mL/min (>60); HEMOLYSIS 1; MAGNESIUM 1.7 mg/dL (1.7-2.5); POTASSIUM 3.6 mEQ/L (3.4-4.9); SODIUM 142 mEQ/L (135-145)
--- NOTE | 2016-08-04 11:03 | Diagnostic Imaging Report ---
APPROVED REPORT CPT Code: 65830 Present Symptoms Shortness of breath BILATERAL: Imaging reveals a patent deep venous system bilaterally. There is no evidence of thrombus within the femoral, popliteal or tibial segments. The greater saphenous veins are also within normal limits. Doppler indicates normal spontaneous flow within these segments.
[2016-08-04 11:24] VITALS: BP 112/53
[2016-08-04] MEDS: Azithromycin 250mg tab ORAL SCH (12:18)
[2016-08-04] MEDS: HYDROmorphone 1mg/ml Carpuject IVP PRN ×2 (12:33→20:50)
[2016-08-04 16:00] VITALS: BP 131/62
[2016-08-04 20:00] VITALS: BP 120/45
[2016-08-04] MEDS: Atorvastatin 80mg tab ORAL SCH (20:50)
[2016-08-05] VITALS: BP 126/76
[2016-08-05] MEDS: HYDROmorphone 1mg/ml Carpuject IVP PRN (01:38)
[2016-08-05] MEDS: DuoNeb 0.5-3(2.5)mg/3ml neb HHN PRN (01:47)
--- NOTE | 2016-08-05 03:06 | Cardiology Report ---
APPROVED REPORT EKG Measurement Heart [id number] Sinus tachycardia Otherwise normal ECG
--- NOTE | 2016-08-05 03:09 | Cardiology Report ---
APPROVED REPORT EKG Measurement Heart [id number] Normal sinus rhythm Normal ECG
[2016-08-05] MEDS: DuoNeb 0.5-3(2.5)mg/3ml neb HHN SCH ×3 (03:25→11:41)
[2016-08-05 04:00] VITALS: BP 122/78
[2016-08-05 08:00] VITALS: BP 128/78
[2016-08-05] MEDS: Heparin 5000 units/ml inj SUBQ SCH (08:41)
[2016-08-05] MEDS: PredniSONE 20mg tab ORAL SCH (08:41)
[2016-08-05] MEDS: Aspirin Baby 81mg ORAL SCH (08:41)
[2016-08-05 11:22] VITALS: BP 123/71
--- NOTE | 2016-08-05 11:27 | Pulmonology Progress Note ---
Assessment/Plan Problems: (1) Pleuritic chest pain (2) Costochondritis, acute (3) Asthmatic bronchitis Assessment/Plan cta was negative continue steroids/taper gradually med/surg or discharge home Subjective ROS Limited/Unobtainable: No Interval Events: less dyspnea Constitutional: Reports: no symptoms HEENT: Repors: no symptoms Respiratory: Reports: no symptoms Allergies: Coded Allergies: PENICILLIN (Verified Allergy, Unknown, 06/11/15) Objective Last 24 Hour Vital Signs Date Time Temp Pulse Resp B/P Pulse Ox O2 Delivery O2 Flow Rate FiO2 08/05/16 11:22 96.9 87 18 123/71 97 Nasal Cannula 2.0 08/05/16 08:07 87 08/05/16 08:00 98.1 85 18 128/78 96 Nasal Cannula 2.0 08/05/16 07:13 Nasal Cannula 2.0 08/05/16 07:11 91 18 96 Nasal Cannula 2.0 08/05/16 07:11 Nasal Cannula 2.0 08/05/16 07:10 91 18 Nasal Cannula 2.0 08/05/16 07:10 95 Nasal Cannula 2.0 08/05/16 04:00 73 08/05/16 04:00 97.3 83 20 122/78 98 Room Air 08/05/16 03:25 Nasal Cannula 08/05/16 03:25 Nasal Cannula 08/05/16 01:47 79 22 98 Nasal Cannula 3.0 32 08/05/16 01:47 32 08/05/16 00:00 89 08/05/16 00:00 97.7 85 20 126/76 97 Room Air 08/04/16 23:30 Nasal Cannula 08/04/16 23:30 Nasal Cannula 08/04/16 20:00 97.9 85 20 120/45 97 Nasal Cannula 3.0 08/04/16 20:00 102 08/04/16 19:24 94 16 99 Nasal Cannula 2.0 28 08/04/16 19:15 93 18 Nasal Cannula 3.0 32 08/04/16 19:15 Nasal Cannula 3.0 32 08/04/16 19:15 32 08/04/16 19:15 93 18 94 Nasal Cannula 3.0 32 08/04/16 19:15 94 Nasal Cannula 3.0 32 08/04/16 16:19 95 16 99 Nasal Cannula 2.0 28 08/04/16 16:15 28 08/04/16 16:15 98 18 97 Nasal Cannula 2.0 28 08/04/16 16:00 97.7 103 18 131/62 95 Nasal Cannula 08/04/16 16:00 104 08/04/16 12:00 100 Intake and Output 08/04/16 08/05/16 19:00 07:00 Intake Total 480 ml 250 ml Balance 480 ml 250 ml Intake Oral 480 ml 250 ml # Voids 3 5 General Appearance: WD/WN HEENT: normocephalic, atraumatic Respiratory/Chest: chest wall non-tender, normal breath sounds Cardiovascular: normal peripheral pulses, normal rate Abdomen: normal bowel sounds Microbiology Date/Time Source Procedure Growth Status 08/03/16 13:20 Nasal Nares Influenza Types A,B Antigen (MARCI) - Final Complete Laboratory Tests 08/05/16 06:05: Hemoglobin A1c 6.4H Current Medications Medications (Trade) Dose Ordered Sig/Balwinder Route PRN Reason Start Time Stop Time Status Last Admin Dose Admin Albuterol/ Ipratropium (DuoNeb 0.5-3(2.5)mg/3ml) 3 ml Q4H PRN HHN Shortness of Breath 08/03/16 01:00 08/08/16 00:59 08/05/16 01:47 Albuterol/ Ipratropium (DuoNeb 0.5-3(2.5)mg/3ml) 3 ml Q4HRT HHN 08/03/16 15:00 08/08/16 14:59 08/04/16 19:15 Aspirin (ASA) 81 mg DAILY ORAL 08/04/16 09:00 09/03/16 08:59 08/05/16 08:41 Atorvastatin Calcium (Lipitor) 80 mg BEDTIME ORAL 08/03/16 21:00 09/02/16 20:59 08/04/16 20:50 Azithromycin (Zithromax) 500 mg DAILY@1200 ORAL 08/03/16 12:00 08/10/16 11:59 08/04/16 12:18 Guaifenesin (Robitussin) 100 mg Q4H PRN ORAL For Cough 08/03/16 12:45 09/02/16 12:44 08/05/16 10:17 Heparin Sodium (Porcine) (Heparin 5000 units/ml) 5,000 units EVERY 12 HOURS SUBQ 08/04/16 09:00 09/03/16 08:59 08/05/16 08:41 Hydromorphone HCl (Dilaudid) 0.5 mg Q4H PRN IVP Pain Scale (3-5) 08/03/16 01:00 08/10/16 00:59 Hydromorphone HCl (Dilaudid) 1 mg Q4H PRN IVP Severe Pain (Pain Scale 7-10) 08/03/16 01:00 08/10/16 00:59 08/05/16 01:38 Prednisone (predniSONE) 60 mg DAILY ORAL 08/03/16 09:00 09/02/16 08:59 08/05/16 08:41 Trazodone HCl (Desyrel) 50 mg BEDTIME PRN ORAL for insomnia 08/04/16 01:15 09/03/16 01:14 JOSE CRUZ Aug 05, 2016 11:27
[2016-08-05] MEDS: Azithromycin 250mg tab ORAL SCH (11:49)
[2016-08-05] MEDS ORDERED: GUAIFENESI100 MG/5 M ORAL (12:47)
[2016-08-05] MEDS ORDERED: ZITHROMAX250 MG ORAL (12:47)
[2016-08-05] MEDS ORDERED: ALBUTEROL SULF8.5 GM INH (12:47)
[2016-08-05] MEDS ORDERED: PREDNISONE20 MG ORAL (12:47)
--- NOTE | 2016-08-05 12:49 | Discharge Summary ---
Discharge Summary Hospital Course Date of Admission Aug 02, 2016 at 21:46 Date of Discharge 08/05/16 Admitting Diagnosis chest pain, hypoxia Reason for Hospitalization: respiratory distress HPI 55y/o female with pmh of tobacco abuse who presents with chest pain. Pt c/o sharp pleuritic substernal and R sided chest pain since yesterday. Also w/ SOB. She has been having a cough productive of some yellow sputum and subjective fevers for the past few days. Consultations Pulmonology Hospital Course Pt was admitted to [facility]. She was ruled out for ACS with serial trop/EKG. TTE showed normal EF. Pt was seen by pulmonology. CTA chest done was negative for PE. Pt was treated for asthma vs COPD (smoking history) exacerbation likely secondary to acute bronchitis. She was given course of steroids and azithromycin , as well as around the clock nebulizers with good improvement. Pt was counseled on smoking cessation. Discharge Medications New Medications: Albuterol Sulfate* (Albuterol Sulfate Mdi*) 8.5 Gm Hfa.aer.ad 2 PUFF INH Q4H PRN, #1 EA 0 Refills Azithromycin* (Zithromax*) 250 Mg Tablet 500 MG ORAL DAILY@1200 for 1 Day, TAB Guaifenesin* (Guaifenesin) 100 Mg/5 Ml Liquid 200 MG ORAL Q4H PRN for 14 Days, ML Prednisone* (Prednisone*) 20 Mg Tablet 60 MG ORAL DAILY for 1 Day, TAB Continued Medications: Cyclobenzaprine Hcl* (Flexeril*) 10 Mg Tablet 10 MG ORAL THREE TIMES A DAY, TAB Diazepam* (Diazepam*) 10 Mg Tablet 10 MG PO BEDTIME, #30 Hydrocodone Bit/Acetaminophen 10-325* (Hydrocodon-Acetaminophn 10-325*) 1 Each Tablet 1 TAB PO Q6HR PRN for For Pain, #120 Tizanidine Hcl* (Zanaflex*) 4 Mg Tablet 4 MG PO Q8HR, #90 Discontinued Medications: Ibuprofen* (Motrin*) 600 Mg Tablet 600 MG ORAL Q6H PRN for For Pain, #30 TAB Discharge Condition Upon Discharge: stable Discharge Disposition Patient was discharged to home Discharge Diagnoses: (1) Acute bronchitis (2) Asthma-COPD overlap syndrome (3) Pleuritic chest pain (4) Tobacco abuse Discharge Instructions Discharge Instructions Follow up with: PCP Call MD/Return to Hospital if: fevers/chills, chest pain, SOB Diet: low fat Activity: resume normal activities Priscilla Duncan M.D. Aug 05, 2016 12:49
--- NOTE | 2016-08-08 09:34 | Cardiology Report ---
APPROVED REPORT EXAM: Two-dimensional and M-mode echocardiogram with Doppler and color Doppler. INDICATION Chest Pain M-Mode DIMENSIONS IVSd1.1 (0.7-1.1cm)Left Atrium (MM)4.1 (1.6-4.0cm) LVDd4.5 (3.5-5.6cm)Aortic Root2.3 (2.0-3.7cm) PWd1.1 (0.7-1.1cm)Aortic Cusp Exc.1.5 (1.5-2.0cm) LVDs2.8 (2.5-4.0cm) PWs2.2 cm Technically difficult study due to poor acoustic windows. Study quality precludes accurate assessment of regional wall motion. Normal left ventricular chamber size, systolic function and wall motion. Left ventricular ejection fraction estimated to be 55 %. No evidence of ventricular hypertrophy. No evidence of pericardial fat or effusion. All other cardiac chamber sizes are within normal limits. Mild focal aortic valve sclerosis with adequate cusp excursion. Mildly thickened mitral valve leaflets with normal excursion. Mildly mitral annulus and aortic root calcification. Pulmonic valve not well visualized. Normal tricuspid valve structure. IVC dilated at 2.2cm with partial physiologic collapse. A color flow and spectral Doppler study was performed and revealed: No aortic regurgitation. Trace mitral regurgitation. Mitral diastolic velocities suggest reduced left ventricular relaxation (Grade I). Trace tricuspid regurgitation. Tricuspid systolic velocities suggests peak right ventricular systolic pressure of 23 mmHg. No pulmonic regurgitation present.
== END 2016-08-05 14:58 | disposition home or self-care (01) | DRG 144 ==
LOC: EMR 20:58 → 2E 21:46 → EDBEDREQ 22:39
DX: J20.9 Acute bronchitis, unspecified (principal); J44.0 Chronic obstructive pulmonary disease with (acute) lower respiratory infection; J44.1 Chronic obstructive pulmonary disease with (acute) exacerbation; J45.909 Unspecified asthma, uncomplicated; Z72.0 Tobacco use; M94.0 Chondrocostal junction syndrome [Tietze]; Z79.899 Other long term (current) drug therapy; Z88.0 Allergy status to penicillin
CPT/HCPCS: 36415; 71010; 71275; 80048; 80053; 82550; 82553; 83036; 83735; 83880; 84484; 85025; 86710; 93005; 93306; 93970; 94640; 94664; 94760; J7620

== ENCOUNTER 2016-12-03 03:10 | Emergency (ER) | payer OTHER ==
[~2016-12-03] VITALS: Ht 165.1 cm; Wt 104.3 kg
[~2016-12-03 03:10] MED LIST changes: +ALBUTEROL SULF8.5 GM INH; +CYCLOBENZAPRINE10 MG ORAL; +DIAZEPAM10 MG PO; +GUAIFENESI100 MG/5 M ORAL; +HYDROCODON-ACE1 EA13 PO; +PREDNISONE20 MG ORAL; +TIZANIDINE HCL4 MG PO; +ZITHROMAX250 MG ORAL
[2016-12-03] MEDS ORDERED: Albuterol ud Inhalation HHN ONE (04:00)
[2016-12-03] MEDS ORDERED: Ketorolac 60mg Inj IM ONE (04:00)
[2016-12-03 04:32] VITALS: BP 150/93
--- NOTE | 2016-12-03 05:41 | Emergency Room Report ---
History of Present Illness General Chief Complaint: Pain Source: Patient Present Illness HPI Fell trying to help down stairs of home. (He is also patient.) Allergies: Coded Allergies: PENICILLIN (Verified Allergy, Unknown, 06/11/15) Nursing Documentation-H Hx Cardiac Problems: No Hx Cancer: No Hx Gastrointestinal Problems: No Physical Exam Vital Signs Date Time Temp Pulse Resp B/P Pulse Ox O2 Delivery O2 Flow Rate FiO2 12/03/16 03:27 98.4 90 20 165/93 98 Room Air Medical Decision Making Diagnostic Impression: Primary Impression: Knee contusion Status: improved Disposition: HOME, SELF-CARE Condition: Improved Referrals: [facility],REFERRING (PCP) Eugenio Cruz M.D. Dec 03, 2016 05:41
[2016-12-03 06:25] VITALS: BP 148/88
[2016-12-03 06:27] VITALS: BP 148/80
--- NOTE | 2016-12-03 08:29 | Diagnostic Imaging Report ---
Indications: Fall, left knee trauma, pain Technique: 3 views left knee. Findings: Comparison: None Lateral view suboptimally positioned, limiting evaluation. No fracture, dislocation, joint space widening or effusion , surrounding soft tissue swelling/foreign body/gas, or other acute changes are identified. Osteophytes are present at the margins of the patellofemoral and knee joint spaces and atop the tibial spines. Small spur emanates from the superior pole of patella in region of quadriceps tendon insertion. IMPRESSION: No evidence of acute injury , limited as described Osteoarthritis Patellar enthesophyte.
== END 2016-12-03 06:28 | disposition home or self-care (01) ==
LOC: EMR 03:50
DX: S80.02XA Contusion of left knee, initial encounter (principal); W10.9XXA Fall (on) (from) unspecified stairs and steps, initial encounter; Y92.019 Unspecified place in single-family (private) house as the place of occurrence of the external cause; Z88.0 Allergy status to penicillin; M17.12 Unilateral primary osteoarthritis, left knee
CPT/HCPCS: 94640; 94664; 96372; 99283

== ENCOUNTER 2017-06-17 08:46 | Emergency (ER) | payer OTHER ==
[~2017-06-17] VITALS: Ht 165.1 cm; Wt 104.3 kg
[2017-06-17] MEDS ORDERED: NKM (08:55)
--- NOTE | 2017-06-17 09:09 | Emergency Room Report ---
History of Present Illness General Chief Complaint: Upper Respiratory Illness Source: Patient Present Illness HPI Patient present with complaints of cough and congestion ongoing since Patient reports that she was having pain to the left rib cage area with increased cough she feels that she has started to get better however again started coughing patient does have a history of smoking Patient's has also started to cough Patient reported a streak of blood sputum on one of the episodes however has not had one since then Denies any vomiting or diarrhea Denies any neck pain or photophobia Allergies: Coded Allergies: PENICILLIN (Verified Allergy, Unknown, 06/11/15) Patient History Past Medical History: see triage record Pertinent Family History: none Last Menstrual Period: 2000 Reviewed Nursing Documentation: PMH: Agreed, PSxH: Agreed Nursing Documentation-PMH Hx Cardiac Problems: No Hx Cancer: No Hx Gastrointestinal Problems: No Review of Systems All Other Systems: negative except mentioned in HPI Physical Exam Vital Signs Date Time Temp Pulse Resp B/P (MAP) Pulse Ox O2 Delivery O2 Flow Rate FiO2 06/17/17 08:52 98.1 89 21 127/75 97 Room Air Sp02 EP Interpretation: reviewed, normal General Appearance: well appearing, no apparent distress Head: normocephalic, atraumatic Eyes: bilateral eye PERRL, bilateral eye EOMI ENT: hearing grossly normal, normal pharynx, TMs + canals normal, uvula midline Neck: full range of motion, supple, no meningismus, no bony tend Respiratory: no retraction, no accessory muscle use, crackles, wheezing Cardiovascular #1: normal peripheral pulses, regular rate, rhythm, no edema, no gallop, no JVD, no murmur Gastrointestinal: normal bowel sounds, non tender, soft, no mass, no organomegaly, non-distended, no guarding, no hernia, no pulsatile mass, no rebound Genitourinary: no CVA tenderness Musculoskeletal: normal inspection Neurologic: oriented x3, responsive, agronomist III-XII nml as tested, motor strength/ tone normal, sensory intact Psychiatric: mood/affect normal Skin: normal color, no rash, warm/dry, palpation normal Lymphatic: normal inspection, no adenopathy Medical Decision Making Diagnostic Impression: Primary Impression: Pneumonia ER Course Patient is a fairly complex patient with multiple differential to consideration including but not limited to cardiac cardiopulmonary and vascular emergencies Patient's chest x-ray does not show any acute disease Patient has done better with breathing treatments Given the clinical findings and complaints appears to have findings in line with clinical pneumonia and is placed on antibiotics for initial conservative outpatient trial Chest X-Ray Diagnostic Results Chest X-Ray Diagnostic Results : Chest X-Ray Ordered: Yes # of Views/Limited/Complete: 1 View Indication: Shortness of Breath EP Interpretation: Yes Interpretation: no consolidation, no effusion, no pneumothorax, other - mild atelectases Impression: No acute disease Electronically Signed by: Gonzalo Schuster DO Last Vital Signs Date Time Temp Pulse Resp B/P (MAP) Pulse Ox O2 Delivery O2 Flow Rate FiO2 06/17/17 09:01 20 Room Air 06/17/17 08:52 98.1 89 127/75 97 Status: improved Disposition: HOME, SELF-CARE Condition: Improved Scripts Guaifenesin/Dextromethorphan (ROBITUSSIN COUGH-CHEST DM LIQ) 237 Ml Liquid 10 ML PO QHS for 5 Days, ML Prov: GONZALO SCHUSTER D.O. 06/17/17 Albuterol Sulfate* (ALBUTEROL SULFATE MDI*) 8.5 Gm Hfa.aer.ad 2 PUFF INH Q6H, #1 EA 0 Refills Prov: GONZALO SCHUSTER D.O. 06/17/17 Levofloxacin* (LEVAQUIN*) 750 Mg Tablet 750 MG ORAL DAILY for 7 Days, TAB Prov: GONZALO SCHUSTER D.O. 06/17/17 Additional Instructions: Patient is provided with the discharge instructions notified to follow up with primary doctor in the next 2-3 days otherwise return to the er with any worsening symptoms. Please note that this report is being documented using [employer] technology. This can lead to erroneous entry secondary to incorrect interpretation by the dictating instrument. GONZALO SCHUSTER D.O. Jun 17, 2017 09:09
[2017-06-17] MEDS ORDERED: Ipratropium 0.02% Inh Soln 2.5ml UD HHN ONE (09:15)
[2017-06-17] MEDS ORDERED: Albuterol ud Inhalation HHN ONE (09:15)
[2017-06-17] MEDS ORDERED: ALBUTEROL SULF8.5 GM INH (10:10)
[2017-06-17] MEDS ORDERED: ROBITUSSIN COU237 M1 PO (10:10)
[2017-06-17] MEDS ORDERED: LEVAQUIN750 MG ORAL (10:10)
[2017-06-17 10:25] VITALS: BP 129/84
--- NOTE | 2017-06-20 10:24 | Diagnostic Imaging Report ---
Indication: Shortness of breath Technique: XRAY Chest 1v Comparison: 08/02/2016 Findings: Cardiac silhouette is prominent. There are linear opacities of the left base. There is no consolidation or pleural effusion. Degenerative changes of the spine are noted. Impression: Linear opacities of the left base could represent atelectasis or scarring. Otherwise no acute cardiopulmonary disease. Cardiomegaly.
== END 2017-06-17 10:25 | disposition home or self-care (01) ==
LOC: EMR 09:08
DX: J18.9 Pneumonia, unspecified organism (principal); Z88.0 Allergy status to penicillin
CPT/HCPCS: 71045; 94640; 99284